=== PATIENT | male | born 1985 | race Caucasian/White ===

== ENCOUNTER → 2024-04-20 | Outpatient (CLI) | payer BC ==
[2024-04-20 18:22] LABS: Basophils # (A) 0.03 X 10*3/uL (0.00-0.10); Basophils % (A) 0.5 %; Eosinophils # (A) 0.13 X 10*3/uL (0.04-0.35); HCT 41.5 % (39.6-50.0); HGB 13.8 g/dL (13.0-17.0); Lymphocytes # (A) 1.48 X 10*3/uL (0.90-5.00); Lymphocytes % (A) 22.6 %; MCH 29.8 pg (27.0-32.0); MCHC 33.3 g/dL (32.0-37.0); MCV 89.6 FL (80.0-97.0); Mean Platelet Volume 9.5 FL (9.5-12.2); Monocytes # (A) 0.25 X 10*3/uL (0.20-1.00); Monocytes % (A) 3.8 %; NRBC Per 100 WBC 0 X 10*3/uL (0.00-0.01); Neutrophils # (A) 4.66 X 10*3/uL (1.80-7.70); Neutrophils % (A) 70.9 %; Platelet Count 353 X 10*3/uL (140-440); RBC 4.63 X 10*6/uL (4.40-5.60); RDW 12.9 % (11.5-14.5); WBC 6.56 X 10*3/uL (4.50-10.00)
[2024-04-20 18:33] LABS: Blood Urea Nitrogen 17.7 mg/dL (9.0-27.0); Calcium 9.7 mg/dL (8.7-10.3); Chloride 107 mmol/L (96-109); Glucose 182 mg/dL (70-110); Sodium 141 mmol/L (135-145)
== END | disposition home or self-care (01) ==
LOC: LABPAT 11:44
PROVIDERS: ATTEND Urology
DX: Z01.818 Encounter for other preprocedural examination
CPT/HCPCS: 36415; 80048; 85025

== ENCOUNTER 2024-04-21 10:14 | Day surgery (SDC) | payer BC ==
--- NOTE | 2024-04-20 07:49 | P.GSHP ---
History of Present Illness H&P Date: 04/20/24 39 yo male comes for right ureteroscopy with laser lithotripsy to a 5 mm distal right ureteral stone. [facility] the stone was first diagnosed on ct scan. I saw the patient on 04/09 and a kub showed the stone still present. His pain has returned. We discussed evaluation and treatment options and he comes for a ureteroscopy and laser lithotripsy. The risks and complications have been discussed. - Constitutional Constitutional: Denies chills, Denies fever - EENT Eyes: denies blurred vision, denies pain Ears, nose, mouth and throat: Denies headache, Denies sore throat - Cardiovascular Cardiovascular: Denies chest pain, Denies shortness of breath - Respiratory Respiratory: Denies cough, Denies 7 - Gastrointestinal Gastrointestinal: Denies abdominal pain, Denies diarrhea, Denies nausea, Denies vomiting - Genitourinary (Female) Genitourinary: Denies dysuria, Denies hematuria - Genitourinary (Male) Genitourinary: Denies dysuria, Denies hematuria - Musculoskeletal Musculoskeletal: Denies myalgias - Integumentary Integumentary: Denies pruritus, Denies rash - Neurological Neurological: Denies numbness, Denies weakness - Psychiatric Psychiatric: Denies anxiety, Denies depression - Endocrine Endocrine: Denies fatigue, Denies weight change Past Medical History Past Medical History: Asthma, Hyperlipidemia, Sleep Apnea/CPAP/BIPAP Additional Past Medical History / Comment(s): kidney stones,seasonal allergies, uses cpap History of Any Multi-Drug Resistant Organisms: None Reported Additional Past Surgical History / Comment(s): oral surgery for wisdom teeth extractions, lasik eye surgery Past Anesthesia/Blood Transfusion Reactions: No Reported Reaction Smoking Status: Never smoker - Past Family History Father Family Medical History: Cancer Additional Family Medical History / Comment(s): prostate Medications and Allergies Home Medications Medication Instructions Recorded Confirmed Type Ergocalciferol [Vitamin D2 (1250 1 tab PO WEEKLY 04/19/24 04/19/24 History Mcg = 12249 Iu)] Fenofibrate Nanocrystallized 145 mg PO DAILY 04/19/24 04/19/24 History [Fenofibrate] Meloxicam 7.5 mg PO DAILY PRN 04/19/24 04/19/24 History Montelukast [Singulair] 10 mg PO HS 04/19/24 04/19/24 History Rosuvastatin Calcium 10 mg PO DAILY 04/19/24 04/19/24 History Tamsulosin [Flomax] 0.4 mg PO DAILY 04/19/24 04/19/24 History Topiramate 100 mg PO HS 04/19/24 04/19/24 History Allergies Allergy/AdvReac Type Severity Reaction Status Date / Time No Known Allergies Allergy Verified 04/19/24 15:08 Surgical - Exam - General well developed, well nourished, no distress - Eyes normal ocular movement, no icteric - ENT no hearing loss, no congestion - Neck no masses, trachea midline - Respiratory normal respiratory effort, clear to auscultation - Abdomen Abdomen: soft, non tender, no guarding, no rigid, no rebound - Integumentary no rash, no abnormal pigmentation - Neurologic no disoriented, no combative - Psychiatric oriented to time, oriented to person, oriented to place, speech is normal, memory intact Results - Imaging Abdominal x-ray: report reviewed, image reviewed CT scan - abdomen: report reviewed, image reviewed CT scan - pelvis: report reviewed, image reviewed Assessment and Plan Assessment: Impression: right ureteral stone with colic Plan: right ureteroscopy with laser lithotripsy
[2024-04-21] MEDS ORDERED: fentaNYL (PF) 50 MCG/ML 2 ML AMP IV PRN (10:35)
[2024-04-21] MEDS ORDERED: MIDAZOLAM 2 MG/2 ML VIAL IV PRN (10:35)
[2024-04-21] MEDS ORDERED: HYDROmorphone 0.5 MG/0.5 ML SYRINGE IVP PRN (10:35)
[2024-04-21] MEDS ORDERED: LIDOCAINE 1% (10MG/ML) FOR IV START INTRADERMA PRN (10:35)
[2024-04-21] MEDS: IV FLUID CONTINUATION 1,000 ML IV ONE (10:44)
--- NOTE | 2024-04-21 10:44 | XR ---
KUB. HISTORY: Abdominal pain. COMPARISON: None. TECHNIQUE: 2 upright views of the abdomen were obtained. FINDINGS: The lung bases are clear. There is no free intraperitoneal air beneath the diaphragm. The bowel gas pattern is nonspecific and there is no evidence of obstruction. There are multiple tiny 2 to 3 mm calcifications in the low pelvis which could represent phleboliths however tiny distal right ureteral calculus cannot be excluded. There are no suspicious calcification s overlying the kidneys or proximal to mid ureters. The osseous structures are intact. IMPRESSION: 1. Nonspecific abdomen without evidence of free air or obstruction. 2. Cannot exclude tiny distal right ureteral calcification. Ureteral calcification versus phleboliths .
[2024-04-21] MEDS: LACTATED RINGERS 1,000 ML IV SCH (10:54)
[2024-04-21] MEDS: ONDANSETRON 4 MG/2 ML VIAL IVP ONE (10:54)
[2024-04-21] MEDS: DEXAMETHASONE SOD PHOSPHATE 4 MG/ML 1 ML VIAL IV ONE (10:54)
[2024-04-21] MEDS ORDERED: fentaNYL (PF) 50 MCG/ML 2 ML AMP ONE (11:40)
[2024-04-21] MEDS ORDERED: LIDOCAINE 1% INJ 10MG/ML (20 ML MDV) ONE (11:40)
[2024-04-21] MEDS ORDERED: MIDAZOLAM 2 MG/2 ML VIAL ONE (11:40)
[2024-04-21] MEDS ORDERED: PROPOFOL 10 MG/ML 20 ML VIAL IV ONE (11:40)
[2024-04-21] MEDS ORDERED: KETOROLAC 15 MG/ML 1 ML VIAL ONE (11:40)
--- NOTE | 2024-04-21 12:30 | P.OP ---
Date of Procedure: 04/21/24 Preoperative Diagnosis: right ureteral calculus Postoperative Diagnosis: same Procedure(s) Performed: cystoscopy, right ureteroscopy with laser lithotripsy and stone basketing Anesthesia: PARISH Surgeon: Roberto López Estimated Blood Loss (ml): 0 Pathology: other (stone) Condition: stable Disposition: PACU Indications for Procedure: patient is 39. He is been trying to pass a 6-7 mm right ureteral stone for a few weeks. The pain persisted and he comes for right ureteroscopy and laser lithotripsy Description of Procedure: patient brought to the operating suite. The patient is given a general anesthetic. He's placed lithotomy position with a sterile prep and drape. Cystoscopy Foroblique lens and 21-Ecuadorean sheath identifies a normal urethra. Prostate is not obstructing. The bladder landers unremarkable. Both ureteral orifices are identified. An 8-Ecuadorean cone-tip catheters passed through the right ureteral orifice to dilate it and its passed up to the presumed stone and indeed there is a stone. I then pass a semirigid ureteroscope up the right ureter. I passed into the stone. With the 275 laser probe and 6 W of energy the stone was broken into tiny pieces the largest of which are stone basketed. We inspected the ureter then no remaining stones. There is not enough edema to merit a stent. The ureteroscope is removed. The bladder is drained. The patient is awakened and returned recovery room in good condition. He tolerated procedure well and will be discharged home upon recovery. He'll follow in the office in one week.
[2024-04-21 12:49] VITALS: TEMP 97.6
[2024-04-21] MEDS: LACTATED RINGERS 1,000 ML IV ONE (13:13)
[2024-04-21 13:53] VITALS: BP 126/81; PULSE 70; RESP 18
--- NOTE | 2024-05-18 10:35 | FL ---
EXAMINATION TYPE: FL guidance operating room DATE OF EXAM: 04/21/2024 12:32 PM COMPARISON: Pre Operative Images if available both CT/MRI or plain film CLINICAL INDICATION: Male, 39 years old with history of RIGHT URETERAL CALC; TECHNIQUE: FL guidance operating room, multiple fluoroscopic images provided for procedure. Total fluoroscopy time: 5 seconds Total submitted images to PACS: 1 DAP: 0.4334 mGym2 Gycm2 uGym2 cGycm2 or equivalent. FINDINGS: Fluoroscopic images taken for ureteral calculus . Contrast is not definitively visualized on fluorosc opy. No evidence of pneumoperitoneum. Multilevel degeneration changes of the spine. IMPRESSION: 1. No evidence for intraoperative complication. 2. Please see the operative/procedural note for further details. [facility], , 05/18/2024 10:33 AM
== END 2024-04-21 13:52 | disposition home or self-care (01) ==
LOC: OR 10:14
PROVIDERS: ATTEND Urology
DX: N20.1 Calculus of ureter (principal); E78.5 Hyperlipidemia, unspecified; G47.33 Obstructive sleep apnea (adult) (pediatric); J45.909 Unspecified asthma, uncomplicated; Z87.442 Personal history of urinary calculi; Z79.899 Other long term (current) drug therapy; Z79.83 Long term (current) use of bisphosphonates; Z79.84 Long term (current) use of oral hypoglycemic drugs
CPT/HCPCS: 74018; 82365